=== PATIENT | female | born 1980 | race Caucasian/White ===

== ENCOUNTER 2017-12-27 21:14 | Emergency (ER) | payer MEDICAID ==
[~2017-12-27] VITALS: Ht 182.9 cm; Wt 98.0 kg
[2017-12-27] MEDS ORDERED: LORazepam Inj 2mg/ml 1ml IV ONE ×2 (22:00→23:30)
[2017-12-27 22:41] LABS: BASOPHILS % (AUTO) 0.5 % (0.0-2.0); EOSINOPHILS % (AUTO) 0.2 % (0.0-3.0); HEMATOCRIT 51.2 % (37.0-47.0); HEMOGLOBIN 16.6 G/DL (12.0-16.0); LYMPHOCYTES % (AUTO) 11.8 % (20.0-45.0); MEAN CORPUSCULAR VOLUME 78 FL (80-99); MONOCYTES % (AUTO) 6.6 % (1.0-10.0); NEUTROPHILS % (AUTO) 80.9 % (45.0-75.0); PLATELET COUNT 375 K/UL (150-450); RED BLOOD COUNT 6.56 M/UL (4.20-5.40); RED CELL DISTRIBUTION WIDTH 14.7 % (11.6-14.8); WHITE BLOOD COUNT 14.7 K/UL (4.8-10.8)
--- NOTE | 2017-12-27 22:56 | Emergency Room Report ---
History of Present Illness General Chief Complaint: Palpitations Source: Patient Present Illness HPI Is a 37-year-old male works out. He presents with chief complaint of palpitation. This afternoon he took 2 clenbuterol tablets as part of his workout regimen. He normally doesn't take this. He took around 5:30 PM. Since then he said his heart started beating fast. He took Xanax but it did not help. No nausea no vomiting. No fever chills but no chest pain. Denies any other complaint. Occur to him once before. Allergies: Coded Allergies: PENICILLINS (Verified Allergy, Unknown, 12/27/17) Patient History Past Medical History: see triage record, old chart reviewed Past Surgical History: other Pertinent Family History: none Social History: Denies: drug use - History of Now: No Immunizations: other Reviewed Nursing Documentation: PMH: Agreed; PSxH: Agreed Nursing Documentation-PM Past Medical History: No History, Except For Hx Hypertension: Yes Review of Systems Eye: Denies: eye pain, blurred vision ENT: Denies: ear pain, nose congestion, throat swelling Respiratory: Denies: cough, shortness of breath Cardiovascular: Reports: palpitations; Denies: chest pain Gastrointestinal: Denies: abdominal pain, diarrhea, nausea, vomiting Musculoskeletal: Denies: back pain, joint pain Skin: Denies: rash Neurological: Denies: headache, numbness Endocrine: Denies: increased thirst, increased urine Hematologic/Lymphatic: Denies: easy bruising All Other Systems: negative except mentioned in HPI Physical Exam Vital Signs Date Time Temp Pulse Resp B/P (MAP) Pulse Ox O2 Delivery O2 Flow Rate FiO2 12/27/17 21:34 98.2 123 21 164/66 97 Room Air 98.2 vitals with tachycardia and high blood pressure Sp02 EP Interpretation: reviewed, normal General Appearance: well appearing, no apparent distress, alert Head: normocephalic, atraumatic Eyes: bilateral eye PERRL, bilateral eye EOMI ENT: hearing grossly normal, normal pharynx Neck: full range of motion, supple, no meningismus Respiratory: chest non-tender, lungs clear, normal breath sounds Cardiovascular #1: regular rate, rhythm, no murmur Gastrointestinal: normal bowel sounds, non tender, no mass, no organomegaly, no bruit, non-distended Musculoskeletal: back normal, gait/station normal, normal range of motion Psychiatric: mood/affect normal Skin: warm/dry Medical Decision Making Diagnostic Impression: Primary Impression: Palpitations Additional Impressions: CANDACE (acute kidney injury) Adverse effects of medication Qualified Codes: T50.905A - Adverse effect of unspecified drugs, medicaments and biological substances, initial encounter ER Course Patient presents with palpitation and anxiety secondary to adverse effect of medication that he use for weightlifting. His creatinine is elevated. He said he has some kidney problem with his [place]uda. it was borderline high in [place]. No evidence of ACS, PE, dissection to name a few. Better after Ativan and IV fluid. We'll discharge home. EKG Diagnostic Results Rate: tachycardiac Rhythm: NSR ST Segments: no acute changes Rhythm Strip Diag. Results Rhythm Strip Time: 22:56 EP Interpretation: yes Rate: 120 Rhythm: NSR, no PVC's, no ectopy Last Vital Signs Date Time Temp Pulse Resp B/P (MAP) Pulse Ox O2 Delivery O2 Flow Rate FiO2 12/27/17 21:34 98.2 123 21 164/66 97 Room Air 98.2 Status: improved Disposition: HOME, SELF-CARE Condition: Stable Patient Instructions: Palpitations Additional Instructions: Follow-up with your doctor in 7 days. Increase fluids. Have your doctor recheck on your kidney function. Return if symptom worsen. UMER PEREZ M.D. Dec 27, 2017 22:56
[2017-12-27 23:04] LABS: ANION GAP 10 mmol/L (5-15); BLOOD UREA NITROGEN 29 mg/dL (7-18); CARBON DIOXIDE 26 MMOL/L (21-32); CHLORIDE 102 MMOL/L (98-107); CREATININE 1.8 MG/DL (0.55-1.30); POTASSIUM 3.4 MMOL/L (3.5-5.1); SODIUM 138 MMOL/L (136-145)
[2017-12-27 23:20] LABS: CKMB 2.9 NG/ML (0.0-3.6); CREATINE KINASE 217 U/L (26-308)
[2017-12-28] MEDS ORDERED: LORazepam Inj 2mg/ml 1ml IV ONE
[2017-12-28 00:37] VITALS: BP 141/71
[2017-12-28] MEDS ORDERED: Acetaminophen 500mg (ES) tab ORAL ONE (02:15)
[2017-12-28 02:17] LABS: APPEARANCE,URINE CLEAR; BILIRUBIN, URINE NEGATIVE (NEGATIVE); COLOR,URINE PALE YELLOW; GLUCOSE, URINE (UA) NEGATIVE (NEGATIVE); KETONES,URINE NEGATIVE (NEGATIVE); LEUKOCYTE ESTERASE ,URINE 1+ (NEGATIVE); NITRITE,URINE NEGATIVE (NEGATIVE); PH,URINE 5 (4.5-8.0); PROTEIN,URINE 3+ (NEGATIVE); UROBILINOGEN,URINE NORMAL MG/DL (0.0-1.0)
[2017-12-28] MEDS ORDERED: ALPRAZolam 0.5mg tab ORAL ONE (02:30)
[2017-12-28 03:15] VITALS: BP 129/58
[2017-12-28 03:20] VITALS: BP 129/58
--- NOTE | 2017-12-30 16:12 | Cardiology Report ---
APPROVED REPORT EKG Measurement Heart [id number] MN [id number] Sinus tachycardia Septal infarct, age undetermined T wave abnormality, consider inferior ischemia Abnormal ECG
== END 2017-12-28 03:00 | disposition home or self-care (01) ==
LOC: EMR 22:09
DX: T50.905A Adverse effect of unspecified drugs, medicaments and biological substances, initial encounter (principal); R00.2 Palpitations; S37.009A Unspecified injury of unspecified kidney, initial encounter; X58.XXXA Exposure to other specified factors, initial encounter; Y93.9 Activity, unspecified; Y92.9 Unspecified place or not applicable; Z88.0 Allergy status to penicillin
CPT/HCPCS: 36415; 80048; 80307; 81003; 82550; 82553; 84484; 85025; 85379; 93005; 96361; 96374; 96375; 96376; 99284